=== PATIENT | male | born 1990 | race Caucasian/White ===

== ENCOUNTER 2016-10-28 18:44 | Emergency (ER) | payer SELFPAY ==
[~2016-10-28 18:44] MED LIST: BACTRIM DS TABL1 TA2 PO; BENADRYL25 MG PO; IBUPROFEN800 MG PO; KEFLEX500 M1 PO; KEFLEX500 MG PO; NAPROSYN500 MG PO; NO MEDICATIONS; PEN-VEE K PO; PERIDEX480 ML PO; PHENERGAN25 MG PO; PREDNISONE50 MG PO; TYLENOL/CODEINE1 TA1 PO; VICODIN 5/1 TAB 5/50 PO; VICODIN 5/500 T1 TAB PO; VOLTAREN50 MG PO; [UNRECOGNIZED DRUG - OTHER]
== END 2016-10-28 19:07 | disposition home or self-care (01) ==
LOC: SED 18:44
DX: L02.412 Cutaneous abscess of left axilla (principal); F17.200 Nicotine dependence, unspecified, uncomplicated; Z98.890 Other specified postprocedural states
CPT/HCPCS: 10060; 87070; 87077; 87186; 87205; 99283

== ENCOUNTER 2016-10-30 12:45 | Emergency (ER) | payer SELFPAY | END 2016-10-30 13:06 | disposition home or self-care (01) | LOC: SED 12:45 | DX: Z48.03 Encounter for change or removal of drains (principal); F17.210 Nicotine dependence, cigarettes, uncomplicated | CPT/HCPCS: 99281 ==